=== PATIENT | female | born 1980 | race Caucasian/White ===

== ENCOUNTER 2016-08-18 07:56 | Emergency (ER) | payer MEDICAID ==
[2015-07-04 19:31] VITALS: BMI 21.0
[~2016-08-18 07:56] MED LIST: BACTRIM DS TABL1 TAB PO
== END 2016-08-18 09:09 | disposition home or self-care (01) ==
LOC: D.ER 07:56
DX: K02.9 Dental caries, unspecified (principal); K08.89 Other specified disorders of teeth and supporting structures; F17.200 Nicotine dependence, unspecified, uncomplicated

== ENCOUNTER → 2017-01-12 16:30 | Outpatient (CLI) | payer MEDICAID ==
[2015-07-04 19:31] VITALS: BMI 21.0
[2017-01-12 17:20] LABS: APPEARANCE CLEAR (CLEAR); COLOR YELLOW (YELLOW); GLUCOSE NEGATIVE (NEGATIVE); LEUKOCYTE ESTERASE NEGATIVE (NEGATIVE); NITRITE NEGATIVE (NEGATIVE); PROTEIN NEGATIVE (NEGATIVE); SPECIFIC GRAVITY 1.025 (1.005-1.020)
[2017-01-12 17:21] LABS: BILIRUBIN NEGATIVE (NEGATIVE); KETONE SMALL mg/dL (NEGATIVE); UROBILINOGEN NORMAL (NORMAL)
[2017-01-12 17:29] LABS: UDS - AMPHET NEGATIVE QUAL (NEGATIVE); UDS - BARB NEGATIVE QUAL (NEGATIVE); UDS - BENZO NEGATIVE QUAL (NEGATIVE); UDS - COCAINE NEGATIVE QUAL (NEGATIVE); UDS - METH NEGATIVE QUAL (NEGATIVE); UDS - OPIATE NEGATIVE QUAL (NEGATIVE); UDS - PCP NEGATIVE QUAL (NEGATIVE); UDS - THC NEGATIVE QUAL (NEGATIVE)
== END | disposition home or self-care (01) ==
LOC: D.LDO 16:30
PROVIDERS: Obstetrics & Gynecology
DX: O26.892 Other specified pregnancy related conditions, second trimester (principal); Z3A.23 23 weeks gestation of pregnancy; R22.9 Localized swelling, mass and lump, unspecified; R51 Headache

== ENCOUNTER → 2017-02-20 21:42 | Outpatient (CLI) | payer MEDICAID ==
[2015-07-04 19:31] VITALS: BMI 21.0
[~2017-02-20 21:42] MED LIST changes: +BUPRENORPHINE HC8 MG SL; +IBUPROFEN600 MG PO; +MOTRIN600 MG PO
[2017-02-20 23:15] LABS: ANION GAP 11.4 mmol/L (8-16); CARBON DIOXIDE 23.5 mmol/L (21.0-32.0)
[2017-02-20 23:17] LABS: BASOPHILS 0 % (0-2); EOSINOPHILS 1.1 % (0-7); HEMATOCRIT 25.3 % (36.0-48.0); HEMOGLOBIN 8.8 g/dL (12-16); IMMATURE GRANULOCYTES 0.6 % (0-5); LYMPHOCYTES 7.9 % (15-50); MCH 30.7 pg (26.0-34.0); MCHC 34.8 g/dL (31.0-37.0); MCV 88.2 fL (80.0-100.0); NEUTROPHILS 83.4 % (40-80); POTASSIUM - SERUM 2.9 mmol/L (3.5-5.1); RBC 2.87 10x6/uL (4.00-5.40); RDW 14.1 % (11.5-14.5); WBC 8.1 10x3/uL (4.8-10.8)
[2017-02-20 23:21] LABS: PLATELET COUNT 202 10x3/uL (130-400)
== END | disposition home or self-care (01) ==
LOC: D.LDO 21:42
PROVIDERS: Obstetrics & Gynecology
DX: O26.899 Other specified pregnancy related conditions, unspecified trimester (principal); R53.1 Weakness

== ENCOUNTER → 2017-04-17 13:10 | Outpatient (CLI) | payer MEDICAID ==
[2015-07-04 19:31] VITALS: BMI 21.0
== END | disposition home or self-care (01) ==
LOC: D.LDO 13:10
DX: O36.8130 Decreased fetal movements, third trimester, not applicable or unspecified (principal); Z3A.37 37 weeks gestation of pregnancy

== ENCOUNTER → 2017-04-20 13:00 | Outpatient (CLI) | payer MEDICAID ==
[2015-07-04 19:31] VITALS: BMI 21.0
== END | disposition home or self-care (01) ==
LOC: D.US 12:45
DX: N28.9 Disorder of kidney and ureter, unspecified (principal)

== ENCOUNTER → 2017-04-23 09:15 | Outpatient (CLI) | payer MEDICAID ==
[2015-07-04 19:31] VITALS: BMI 21.0
== END | disposition home or self-care (01) ==
LOC: D.LDO 09:15
DX: O36.8130 Decreased fetal movements, third trimester, not applicable or unspecified (principal); Z3A.38 38 weeks gestation of pregnancy

== ENCOUNTER 2017-04-29 05:14 | Inpatient (IN) | payer MEDICAID ==
[~2017-04-29] VITALS: Ht 172.7 cm; Wt 94.3 kg
[~2017-04-29 05:14] MED LIST changes: -BUPRENORPHINE HC8 MG SL; -IBUPROFEN600 MG PO; -MOTRIN600 MG PO
[2017-04-29] MEDS ORDERED: BUPRENORPHINE HC8 MG SL (05:27)
[2017-04-29 05:29] VITALS: BP 127/88
[2017-04-29 06:40] LABS: HEMATOCRIT 28.5 % (36.0-48.0); HEMOGLOBIN 9.3 g/dL (12-16); MCH 26.3 pg (26.0-34.0); MCHC 32.6 g/dL (31.0-37.0); MCV 80.5 fL (80.0-100.0); RBC 3.54 10x6/uL (4.00-5.40); RDW 16.4 % (11.5-14.5); WBC 8.4 10x3/uL (4.8-10.8)
--- NOTE | 2017-04-29 07:01 | NUR ---
report to am shift to assume patient care.
[2017-04-29 07:13] LABS: UDS - AMPHET NEGATIVE QUAL (NEGATIVE); UDS - BARB NEGATIVE QUAL (NEGATIVE); UDS - BENZO NEGATIVE QUAL (NEGATIVE); UDS - COCAINE NEGATIVE QUAL (NEGATIVE); UDS - OPIATE NEGATIVE QUAL (NEGATIVE); UDS - PCP NEGATIVE QUAL (NEGATIVE); UDS - THC NEGATIVE QUAL (NEGATIVE)
[2017-04-29 10:09] VITALS: Ht 172.7 cm; Wt 94.3 kg
--- NOTE | 2017-04-29 19:00 | NUR ---
PATIENT REPORT RECEIVED FROM AM SHIFT TO ASSUME PATIENT CARE.
--- NOTE | 2017-04-29 19:27 | NUR ---
PATIENT ASSESSMENT DONE IN [facility].
[2017-04-29 21:33] VITALS: BP 113/73
--- NOTE | 2017-04-29 23:15 | NUR ---
PATIENT SLEEPING, RESPIRATIONS EVEN AND NON LABORED. BED LOCKED IN LOW POSITION, SIDE RAILS UPX2, CALL [place] AND TRAY TABLE IN REACH. WILL CONTINUE TO MONITOR.
--- NOTE | 2017-04-30 00:40 | NUR ---
PATIENT UP TO BATHROOM, VOIDED WITHOUT DIFFICULTY. PLUM SIZED CLOT NOTED IN TOILET. PT BACK TO BED, FUNDUS MASSAGED, FIRM, MIDLINE U-2. NO FURTHER CLOTS EXPRESSED. BLEEDING SMALL. LEGS ELEVATED ON PILLOWS, PLUS ONE PITTING EDEMA NOTED BILATERALLY. WILL CONTINUE TO MONITOR.
--- NOTE | 2017-04-30 01:50 | NUR ---
PATIENT COMPLAINING OF 7/10 CRAMPING PAIN. NORCO 10/325 MG ONE PO AT THIS TIME PER MD ORDER AND PT REQUEST. FUNDUS FIRM,ML, U-2. BLEEDING SMALL. PATIENT UP TO VOID, VOIDED WITHOUT DIFFICULTY. ZULLY CARE PERFORMED AND PAD CHANGED. PATIENT BACK TO BED. DENIES OTHER NEEDS. BED LOCKED IN LOW POSITION, CALL CALABRESE AND TRAY TABLE IN REACH. WILL CONTINUE TO MONITOR.
--- NOTE | 2017-04-30 02:39 | NUR ---
PATIENT UP TO BATHROOM, VOIDED WITHOUT DIFFICULTY. ZULLY CARE PERFORMED, PAD AND PANTIES CHANGED. BACK TO BED, MOTRIN 600MG PO AT THIS TIME PER MD ORDERS. PT STATES THAT HER CRAMPING PAIN IS 7/10. PT MOANING. BED LOCKED IN LOW POSITION, CALL [place] AND TRAY TABLE IN REACH. SIDE RAILS UPX2. PT ENCOURAGED TO CALL WITH ANY FURTHER NEEDS.
--- NOTE | 2017-04-30 05:43 | NUR ---
PATIETNT SLEEPING ON LEFT SIDE. RESPIRATIONS EVEN AND NON LABORED, NO S/S OF DISTRESS AT THIS TIME. TRAY TABLE AND CALL CALABRESE IN REACH.
--- NOTE | 2017-04-30 05:54 | NUR ---
PATIENT WOKE UP WITH CRAMPING PAIN 5/10, NORCO 10/325MG PO AT THIS TIME PER PT REQUEST AND MD ORDER. DENIES FURTHER NEEDS. WILL CONTINUE TO MONITOR
[2017-04-30 06:35] LABS: BASOPHILS 0.1 % (0-2); EOSINOPHILS 1.3 % (0-7); HEMATOCRIT 24.8 % (36.0-48.0); IMMATURE GRANULOCYTES 0.1 % (0-5); LYMPHOCYTES 16.6 % (15-50); MCH 25.9 pg (26.0-34.0); MCHC 32.3 g/dL (31.0-37.0); MCV 80.3 fL (80.0-100.0); NEUTROPHILS 75.9 % (40-80); PLATELET COUNT 261 10x3/uL (130-400); RBC 3.09 10x6/uL (4.00-5.40); RDW 16.5 % (11.5-14.5)
--- NOTE | 2017-04-30 06:50 | NUR ---
PT REPORT GIVEN TO AM SHIFT TO ASSUME PATIENT CARE
--- NOTE | 2017-04-30 07:15 | NUR ---
DR IGLESIAS TO ROOM, DISCUSSED NEED TO POSTPONE TUBAL LIGATION PLANNED SECONDARY TO DROP IN LAB VALUES. PT IN AGREEMENT AND BREAKFAST TRAY ORDERED.
[2017-04-30 07:20] VITALS: BP 133/65
--- NOTE | 2017-04-30 07:20 | NUR ---
PT AAOX3, VSS, AFEBRILE, RESP EVEN AND UNLABORED, LUNGS CTAB, HEART RRR, ABD SOFT, NONDISTENDED, REPORTS CRAMPING, FF AT U/2 AND MIDLINE, NO CLOTS EXPRESSED AT THIS TIME ALTHOUGH PT REPORTS HAVING PASSED A CLOT AROUND 5AM. REPORTS PERICARE COMPLETED. HUNTER FREELY, PEDAL EDEMA 1+ BILATERALLY, PEDAL PULSES 2+/=, NEGATIVE RUTH'S SIGN, REPORTS PAIN 3 OUT OF 10 BUT DENIES NEED FOR PAIN MEDS AT THIS TIME. STATES ANXIOUS TO SEE BABY BUT CONCERNED THAT SHE CAN ONLY SEE BABY 15 MINUTES AT A TIME IN THE NICU. EMOTIONAL SUPPORT PROVIDED. C/L IN EASY REACH. DENIES NEEDS AT THIS TIME.
--- NOTE | 2017-04-30 07:21 | NUR ---
AT BEDSIDE FOR SHIFT ASSESSMENT WITH Loulou LÓPEZ RN ORIENTEE. AGREE WITH ABOVE NOTE FOR ASSESSMENT PER Loulou LÓPEZ RN. PT AGREEABLE WITH TEACHING AND POC.
[2017-04-30 08:22] LABS: RAPID PLASMA REAGIN Non Reactive (Non Reactive)
--- NOTE | 2017-04-30 08:24 | NUR ---
PT AAOX3, AMBULATORY IN HALLS, STATES "I'M GOING TO THE [facility] TO GET SOME FOOD AND WALK AROUND. I AM MISSING MY BABY, NOT HAVING HER WITH ME NOW WHEN I HAD HER IN MY BELLY FOR 9 MONTHS." OFFERED TO ORDER FOOD FROM [facility] FOR PT, BUT REFUSED THIS OPTION. RESP EVEN AND UNLABORED.
[2017-04-30] MEDS ORDERED: MOTRIN600 MG PO (08:40)
[2017-04-30] MEDS ORDERED: IBUPROFEN600 MG PO (09:01)
--- NOTE | 2017-04-30 09:30 | NUR ---
DISCHARGE INSTRUCTIONS REVIEWED WITH HANDOUTS PROVIDED FOR MEDICATION AND DELIVERY. RX FOR MOTRIN GIVEN TO PT. VOICES UNDERSTANDING OF ALL INFORMATION. PT NOW IN ROOM LYING IN BED, SR UP X2, BED IN LOW POSITION, C/L IN EASY REACH.
--- NOTE | 2017-04-30 10:19 | NUR ---
LYING IN BED, RESP EVEN AND UNLABORED, LIGHTS DIMMED, SR UP X2, BED IN LOW POSITION.
--- NOTE | 2017-04-30 11:10 | NUR ---
PT DC'D TO HOME WITH FRIEND, TRANSFERRED TO PRIVATE AUTO VIA WC AND ALL PERSONAL BELONGINGS. RESP EVEN AND UNLABORED, DENIES C/O PAIN OR OTHER NEEDS.
--- NOTE | 2017-06-03 13:27 | DS ---
PATIENT:MERY LAWLER :82 MEDICAL RECORD: [id number] DISCHARGE SUMMARY ADMISSION DATE: 04/29/17 DISCHARGE DATE: 04/30/17 HOSPITAL COURSE: The patient was admitted on 04/29/2017. A 36-year-old G6, P5 at 38 weeks and 6 days, who was admitted for augmentation of labor due to advanced cervical dilation. The patient was noted to be O positive, group B strep negative, and rubella immune. PAST MEDICAL HISTORY: Significant for advanced maternal age, anemia, and grand multiparity. THE patient is also a smoker and a history of narcotics dependence. PAST SURGICAL HISTORY: Significant for a previous cholecystectomy. The patient reported no allergies. MEDICATIONS: Included vitamins and Subutex. The patient reported no significant family history. SOCIAL HISTORY: Positive for being a current everyday smoker. PHYSICAL EXAMINATION: VITAL SIGNS: On initial assessment, vital signs are stable. The patient was afebrile. LUNGS: Clear to auscultation. CARDIOVASCULAR: Regular rate and rhythm. PELVIC: Uterus was appropriately sized and nontender. Cervical exam was noted to be 4-5 cm dilated. EXTREMITIES: Lower extremities were free of Homans sign. wellbeing was reassuring with category 1 tracing. LABORATORY DATA: Admission hemoglobin was found to be 9.3. Admit UDS was noted to be normal. ASSESSMENT: 1. Admission, term intrauterine at 38 weeks and 5 days. 2. Grand multiparity. 3. Advanced cervical dilation. 4. Anemia. 5. Narcotic dependence. 6. Advanced maternal age. 7. Tobacco. PLAN: At that time, plan for Pitocin augmentation of labor, hemoglobin was 9.3. Subutex was continued during labor, plan for rupture of membranes when appropriate. wellbeing was noted to be reassuring. AROM was performed with clear fluid and on Pitocin, the patient progressed quickly to the second stage of labor, normal spontaneous vaginal delivery of a viable female infant was noted with repair of first-degree laceration. Delivery note is as on the chart. The patient did well overnight on day #0, tolerating general diet, p.o. pain meds, voiding freely with moderate lochia. On the morning of day #1 status post , the patient remained afebrile. hemoglobin was found to be 8.0. Vital signs were stable. Uterus was infraumbilical and nontender with minimal lochia at that time. The patient was tolerating general diet and p.o. pain meds, instructions were reiterated for DISCHARGE SUMMARY REPORT [id number] MERY LAWLER pain medication use while on Subutex. The patient was discharged home. We will plan to follow up in 6 weeks for interval tubal ligation. TRANSINT:[id number] Voice Confirmation ID: [id number] DOCUMENT ID: [id number] PALOMA IGLESIAS MD at 1327 CC: [id number] DICTATION DATE: 05/30/17 0724 FITTINGS TIGHTENER: 05/30/17 1340 DIS IN 04/30/17 [id number] [place] [address]
== END 2017-04-30 11:10 | disposition home or self-care (01) | DRG 775 ==
LOC: D.LD 05:14
PROVIDERS: ADMIT Obstetrics & Gynecology
PROC: 10E0XZZ Delivery of Products of Conception, External Approach (ICD-10-PCS; principal; 2017-04-29)
PROC: 0HQ9XZZ Repair Perineum Skin, External Approach (ICD-10-PCS; 2017-04-29)
DX: O99.324 Drug use complicating childbirth (principal); F11.20 Opioid dependence, uncomplicated; Z64.1 Problems related to multiparity; O99.02 Anemia complicating childbirth; Z3A.38 38 weeks gestation of pregnancy; Z37.0 Single live birth; O70.0 First degree perineal laceration during delivery; O99.334 Smoking (tobacco) complicating childbirth

== ENCOUNTER 2020-08-10 10:06 | Outpatient (CLI) | payer OTHER ==
[~2020-08-10] VITALS: Ht 172.7 cm; Wt 76.4 kg
[~2020-08-10 10:06] MED LIST changes: +BUPRENORPHINE HC8 MG SL; +IBUPROFEN600 MG PO; +MOTRIN600 MG PO
[2020-08-10 11:32] VITALS: Ht 172.7 cm; Wt 76.4 kg
== END 2020-08-10 13:15 ==
LOC: D.OPS 10:06
PROVIDERS: ATTEND Family Medicine Adult Medicine
DX: D50.9 Iron deficiency anemia, unspecified (principal)